=== PATIENT | female | born 2000 | race Caucasian/White ===

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

== ENCOUNTER 2022-10-26 12:40 | Emergency (ER) | payer OTHER ==
[~2022-10-26] VITALS: Ht 152.4 cm; Wt 52.2 kg
[2022-10-26 12:51] VITALS: BP 142/90
[2022-10-26] MEDS ORDERED: CEPH500 PO (13:35)
== END 2022-10-26 14:33 | disposition home or self-care (01) ==
LOC: ER 12:40
DX: S62.651B Nondisplaced fracture of middle phalanx of left index finger, initial encounter for open fracture (principal); W23.0XXA Caught, crushed, jammed, or pinched between moving objects, initial encounter; Z23 Encounter for immunization
CPT/HCPCS: 73140; 90714; A9270

== ENCOUNTER 2023-04-16 10:41 | Emergency (ER) | payer OTHER ==
[~2023-04-16] VITALS: Ht 152.4 cm; Wt 51.3 kg
[~2023-04-16 10:41] MED LIST changes: +CEPH500 PO
[2023-04-16 11:14] VITALS: BP 143/74
[2023-04-16] MEDS ORDERED: Robaxin750 MG PO (11:22)
[2023-04-16] MEDS ORDERED: Mobic7.5 MG PO (11:22)
== END 2023-04-16 11:22 | disposition home or self-care (01) ==
LOC: ER 10:41
DX: M54.9 Dorsalgia, unspecified (principal)
CPT/HCPCS: 99282

== ENCOUNTER → 2023-07-04 | Outpatient (CLI) | payer OTHER ==
[~2023-07-04] MED LIST changes: +Mobic7.5 MG PO; +Robaxin750 MG PO
[2023-07-04 20:05] LABS: BASOPHILS ABSOLUTE AUTO 0.03 K/mm3 (0.00-0.23); BASOPHILS PERCENT AUTO 1 % (0-2); EOSINOPHILS ABSOLUTE AUTO 0.02 K/mm3 (0.00-0.68); EOSINOPHILS PERCENT AUTO 0 % (0-6); Hematocrit 42.4 % (33.0-51.0); Hemoglobin 14.5 g/dL (11.5-16.0); IMMATURE GRAN ABSOLUTE AUTO 0.01 K/mm3 (0.00-0.10); IMMATURE GRAN PERCENT AUTO 0 % (0-1); LYMPHOCYTES ABSOLUTE AUTO 1.78 K/mm3 (0.84-5.20); LYMPHOCYTES PERCENT AUTO 27 % (21-46); MONOCYTES ABSOLUTE AUTO 0.35 K/mm3 (0.16-1.47); MONOCYTES PERCENT AUTO 5 % (4-13); Mean Corpuscular HGB 29.8 pg (26.0-34.0); Mean Corpuscular HGB Conc 34.2 g/dL (31.5-36.5); Mean Corpuscular Volume 87 fL (80-100); Mean Platelet Volume 10.6 fL (9.1-12.4); NEUTROPHILS ABSOLUTE AUTO 4.32 K/mm3 (1.96-9.15); NEUTROPHILS PERCENT AUTO 66 % (41-73); Platelet Count 298 K/mm3 (150-400); RDW Coefficient Variation 11.9 % (11.7-14.2); RDW Standard Deviation 38.1 fL (35.1-46.3); Red Blood Cell Count 4.86 M/mm3 (3.80-5.20); White Blood Cell Count 6.51 K/mm3 (4.00-11.30)
[2023-07-06 15:11] LABS: BILIRUBIN, TOTAL 0.3 mg/dL (0.0-1.2); CALCIUM, SERUM 9.2 mg/dL (8.7-10.2); CREATININE, SERUM 0.54 mg/dL (0.57-1.00); GLOBULIN, TOTAL 2.5 g/dL (1.5-4.5); POTASSIUM, SERUM 3.7 mmol/L (3.5-5.2); PROTEIN, TOTAL, SERUM 7.4 g/dL (6.0-8.5)
== END | disposition home or self-care (01) ==
LOC: LAB SHORT 18:43 → LAB 18:43
PROVIDERS: Family Medicine
DX: R63.4 Abnormal weight loss (principal)
CPT/HCPCS: 80053; 83036; 84443; 85025

== ENCOUNTER 2023-12-18 20:11 | Emergency (ER) | payer SELFPAY ==
[~2023-12-18] VITALS: Ht 152.4 cm; Wt 52.2 kg
[2023-12-18 20:29] VITALS: BP 121/76
== END 2023-12-18 21:57 | disposition home or self-care (01) ==
LOC: ER 20:11
DX: M41.80 Other forms of scoliosis, site unspecified (principal); M79.661 Pain in right lower leg; R26.9 Unspecified abnormalities of gait and mobility; F17.290 Nicotine dependence, other tobacco product, uncomplicated
CPT/HCPCS: 93971; 99283-25

== ENCOUNTER 2024-02-25 00:26 | Emergency (ER) | payer OTHER ==
[~2024-02-25] VITALS: Ht 152.4 cm; Wt 54.4 kg
[2024-02-25 03:35] LABS: BASOPHILS ABSOLUTE AUTO 0.04 K/mm3 (0.00-0.23); BASOPHILS PERCENT AUTO 1 % (0-2); EOSINOPHILS ABSOLUTE AUTO 0.07 K/mm3 (0.00-0.68); EOSINOPHILS PERCENT AUTO 1 % (0-6); Hematocrit 42.4 % (33.0-51.0); Hemoglobin 14.6 g/dL (11.5-16.0); IMMATURE GRAN ABSOLUTE AUTO 0.01 K/mm3 (0.00-0.10); IMMATURE GRAN PERCENT AUTO 0 % (0-1); LYMPHOCYTES ABSOLUTE AUTO 2.42 K/mm3 (0.84-5.20); LYMPHOCYTES PERCENT AUTO 28 % (21-46); MONOCYTES ABSOLUTE AUTO 0.49 K/mm3 (0.16-1.47); MONOCYTES PERCENT AUTO 6 % (4-13); Mean Corpuscular HGB 30.2 pg (26.0-34.0); Mean Corpuscular HGB Conc 34.4 g/dL (31.5-36.5); Mean Corpuscular Volume 88 fL (80-100); Mean Platelet Volume 9.8 fL (9.1-12.4); NEUTROPHILS ABSOLUTE AUTO 5.69 K/mm3 (1.96-9.15); NEUTROPHILS PERCENT AUTO 65 % (41-73); Platelet Count 292 K/mm3 (150-400); RDW Standard Deviation 38.5 fL (35.1-46.3); Red Blood Cell Count 4.84 M/mm3 (3.80-5.20); White Blood Cell Count 8.72 K/mm3 (4.00-11.30)
[2024-02-25] MEDS ORDERED: Ketorolac Tromethamine 30mg Vial IV ONE (03:50)
[2024-02-25] MEDS ORDERED: Mag Hydrox/AL Hydrox/Simeth 30 ML UDC PO ONE (03:50)
[2024-02-25] MEDS ORDERED: NS 1,000 ML IV SCH (03:50)
[2024-02-25] MEDS ORDERED: Ondansetron HCl 2 MG / ML 2ML Vial IV ONE (03:50)
[2024-02-25 03:58] LABS: Albumin, Blood 4.4 g/dL (3.4-5.0); Albumin/Globulin Ratio 1.2 (0.8-1.8); Bilirubin, Total 0.4 mg/dL (0.1-1.0); Bun/Creatinine Ratio 14.3 (12.0-20.0); Calcium, Blood 9.3 mg/dL (8.5-10.1); Creatinine, Blood 0.56 mg/dL (0.40-1.00); Globulin, Blood 3.8 g/dL (2.2-4.0); Potassium, Blood 4.1 mmol/L (3.5-5.5); Total Protein, Blood 8.2 g/dL (6.4-8.2)
[2024-02-25 04:33] LABS: Source, Urine Clean Catch
[2024-02-25 04:39] LABS: Bilirubin, Urine Neg (Neg); Blood, Urine Neg (Neg); Glucose Qualitative, Urine Neg (Neg); Ketones, Urine Neg (Neg); Leukocyte Esterase, Urine 2+ (Neg); Nitrite, Urine Neg (Neg); Protein, Urine Neg (Neg); Urobilinogen, Urine NORM (Normal)
[2024-02-25 04:53] LABS: Appearance, Urine Hazy (Clear); Color, Urine Pale Yellow (P-Yellow)
[2024-02-25 04:54] LABS: Bacteria Few /hpf; Red Blood Cells, Urine Not Seen /hpf (0-2); Squamous Epithelial Cells Few /hpf (Few)
[2024-02-25 06:15] VITALS: BP 137/88
[2024-02-25] MEDS ORDERED: CEPH500 PO (06:26)
== END 2024-02-25 06:35 | disposition home or self-care (01) ==
LOC: ER 00:26
PROVIDERS: Student in an Organized Health Care Education/Training Program
DX: O23.41 Unspecified infection of urinary tract in pregnancy, first trimester (principal)
CPT/HCPCS: 80053; 81001; 83690; 84702; 84703; 85025; 87086; 96361; 96374; 96375; 99284-25; A9270; J1885; J2405; J7030

== ENCOUNTER 2024-03-04 05:29 | Emergency (ER) | payer OTHER ==
[~2024-03-04] VITALS: Ht 152.4 cm; Wt 54.0 kg
[2024-03-04 06:24] LABS: BASOPHILS ABSOLUTE AUTO 0.02 K/mm3 (0.00-0.23); BASOPHILS PERCENT AUTO 0 % (0-2); EOSINOPHILS ABSOLUTE AUTO 0.05 K/mm3 (0.00-0.68); EOSINOPHILS PERCENT AUTO 1 % (0-6); Hematocrit 39.4 % (33.0-51.0); Hemoglobin 13.8 g/dL (11.5-16.0); IMMATURE GRAN ABSOLUTE AUTO 0.01 K/mm3 (0.00-0.10); IMMATURE GRAN PERCENT AUTO 0 % (0-1); LYMPHOCYTES ABSOLUTE AUTO 1.37 K/mm3 (0.84-5.20); LYMPHOCYTES PERCENT AUTO 18 % (21-46); MONOCYTES ABSOLUTE AUTO 0.38 K/mm3 (0.16-1.47); MONOCYTES PERCENT AUTO 5 % (4-13); Mean Corpuscular HGB 30.4 pg (26.0-34.0); Mean Corpuscular Volume 87 fL (80-100); Mean Platelet Volume 9.9 fL (9.1-12.4); NEUTROPHILS ABSOLUTE AUTO 5.97 K/mm3 (1.96-9.15); NEUTROPHILS PERCENT AUTO 77 % (41-73); Platelet Count 239 K/mm3 (150-400); RDW Coefficient Variation 12.1 % (11.7-14.2); RDW Standard Deviation 39.1 fL (35.1-46.3); Red Blood Cell Count 4.54 M/mm3 (3.80-5.20)
[2024-03-04] MEDS ORDERED: Mag Hydrox/AL Hydrox/Simeth 30 ML UDC PO ONE (06:35)
[2024-03-04] MEDS ORDERED: Famotidine 10 MG/ML 2ML Vial IV ONE (06:35)
[2024-03-04] MEDS ORDERED: Metoclopramide HCl 5MG / ML 2ML Vial IV ONE (06:35)
[2024-03-04 07:07] LABS: Albumin, Blood 4.1 g/dL (3.4-5.0); Albumin/Globulin Ratio 1.3 (0.8-1.8); Bilirubin, Direct 0.2 mg/dL (0.0-0.3); Bilirubin, Total 0.5 mg/dL (0.1-1.0); Bun/Creatinine Ratio 7.8 (12.0-20.0); Calcium, Blood 9.1 mg/dL (8.5-10.1); Creatinine, Blood 0.51 mg/dL (0.40-1.00); Globulin, Blood 3.1 g/dL (2.2-4.0); Potassium, Blood 3.6 mmol/L (3.5-5.5); Total Protein, Blood 7.2 g/dL (6.4-8.2)
[2024-03-04] MEDS ORDERED: METO10 PO (08:28)
[2024-03-04] MEDS ORDERED: VITAMIN B-625 MG PO (08:28)
[2024-03-04] MEDS ORDERED: FAMO20 PO (08:28)
[2024-03-04 08:36] VITALS: BP 131/77
== END 2024-03-04 08:40 | disposition home or self-care (01) ==
LOC: ER 05:29
PROVIDERS: Student in an Organized Health Care Education/Training Program
DX: O26.891 Other specified pregnancy related conditions, first trimester (principal); R10.13 Epigastric pain; O21.9 Vomiting of pregnancy, unspecified; Z3A.01 Less than 8 weeks gestation of pregnancy
CPT/HCPCS: 76705; 80053; 82248; 83690; 84702; 85025; 96374; 96375; 99284-25; A9270; J2765

== ENCOUNTER → 2024-04-11 | Outpatient (CLI) | payer OTHER ==
[~2024-04-11] MED LIST changes: +FAMO20 PO; +METO10 PO; +VITAMIN B-625 MG PO
[2024-04-15 13:03] LABS: APTIMA MEDIA TYPE Urine; C. TRACHOMATIS BY TMA Negative (Negative); N. GONORRHOEAE BY TMA Negative (Negative); SPECIMEN SOURCE Urine
== END | disposition home or self-care (01) ==
LOC: LAB SHORT 15:53 → LAB 15:53
PROVIDERS: Registered Nurse Community Health
DX: Z34.91 Encounter for supervision of normal pregnancy, unspecified, first trimester (principal)
CPT/HCPCS: 84443; 87491; 87591

== ENCOUNTER → 2024-07-07 | Outpatient (CLI) | payer OTHER | END | disposition home or self-care (01) | LOC: LAB SHORT 15:47 → LAB 15:47 | DX: R82.998 Other abnormal findings in urine (principal) | CPT/HCPCS: 87086 ==

== ENCOUNTER → 2024-08-07 | Outpatient (CLI) | payer OTHER ==
[2024-08-07 14:58] LABS: Hematocrit 35.8 % (33.0-51.0); Hemoglobin 12.5 g/dL (11.5-16.0)
== END ==
LOC: LAB 13:11 → LAB SHORT 13:11
PROVIDERS: Registered Nurse Community Health
DX: Z34.93 Encounter for supervision of normal pregnancy, unspecified, third trimester (principal)
CPT/HCPCS: 82950; 85014; 85018

== ENCOUNTER → 2024-09-18 | Outpatient (CLI) | payer OTHER ==
[2024-09-18 20:24] LABS: Protein, Urine Quantitative 9.7 mg/dL (0.0-11.9)
== END ==
LOC: LAB SHORT 11:30 → LAB 11:30
PROVIDERS: Registered Nurse Community Health
DX: O13.3 Gestational [pregnancy-induced] hypertension without significant proteinuria, third trimester (principal)
CPT/HCPCS: 81050; 84156

== ENCOUNTER → 2024-09-24 | Outpatient (CLI) | payer OTHER | LOC: LAB 19:11 → LAB SHORT 19:11 | DX: Z34.03 Encounter for supervision of normal first pregnancy, third trimester (principal) | CPT/HCPCS: 87081; 87150 ==

== ENCOUNTER 2024-10-03 16:55 | Inpatient (IN) | payer OTHER ==
[2024-10-03] VITALS (23 sets, daily range): BP systolic 132–185; BP diastolic 75–109
[~2024-10-03] VITALS: Ht 152.4 cm; Wt 66.8 kg
[~2024-10-03 16:55] MED LIST changes: +Misoprostol 200 MCG Tab PO ONE
[2024-10-03] MEDS ORDERED: Oxytocin 10 Unit / ML Vial IM PRN (17:25)
[2024-10-03] MEDS ORDERED: Carboprost Tromethamine 250 MCG/ML 1ML Amp IM PRN (17:25)
[2024-10-03] MEDS ORDERED: LABE100 PO (17:25)
[2024-10-03] MEDS ORDERED: Misoprostol 200 MCG Tab PR PRN (17:25)
[2024-10-03] MEDS ORDERED: ePHEDrine Sulfate 50 MG/ML 1ML Injection XX PRN (17:25)
[2024-10-03] MEDS ORDERED: Tranexamic Acid 100 ML IV SCH (17:25)
[2024-10-03] MEDS ORDERED: Acetaminophen 500 MG Tab PO PRN (17:25)
[2024-10-03] MEDS ORDERED: FentaNYL 2mcg/ml-Bup 0.1% Epd 250 ML EPI PRN (17:25)
[2024-10-03] MEDS ORDERED: Lactated Ringer's 1,000 ML IV SCH ×3 (17:25→20:20)
[2024-10-03] MEDS ORDERED: Misoprostol 200 MCG Tab BC PRN (17:25)
[2024-10-03] MEDS ORDERED: Methylergonovine Maleate 0.2MG / ML 1ML Amp IM PRN (17:25)
[2024-10-03] MEDS ORDERED: Ondansetron HCl 2 MG / ML 2ML Vial IV PRN (17:25)
[2024-10-03] MEDS ORDERED: OXYTOCIN/RINGER'S LACTATE 500 ML IV PRN (17:25)
[2024-10-03] MEDS ORDERED: Lactated Ringer's 1,000 ML IV PRN (17:25)
[2024-10-03] MEDS ORDERED: Calcium Carbonate 500 MG Tab Chew PO SCH (17:30)
[2024-10-03 18:01] LABS: BASOPHILS ABSOLUTE AUTO 0.01 K/mm3 (0.00-0.23); BASOPHILS PERCENT AUTO 0 % (0-2); EOSINOPHILS ABSOLUTE AUTO 0.02 K/mm3 (0.00-0.68); EOSINOPHILS PERCENT AUTO 0 % (0-6); Hematocrit 30.2 % (33.0-51.0); Hemoglobin 10.3 g/dL (11.5-16.0); IMMATURE GRAN ABSOLUTE AUTO 0.05 K/mm3 (0.00-0.10); IMMATURE GRAN PERCENT AUTO 1 % (0-1); LYMPHOCYTES ABSOLUTE AUTO 1.37 K/mm3 (0.84-5.20); LYMPHOCYTES PERCENT AUTO 16 % (21-46); MONOCYTES ABSOLUTE AUTO 0.62 K/mm3 (0.16-1.47); MONOCYTES PERCENT AUTO 7 % (4-13); Mean Corpuscular HGB 30.1 pg (26.0-34.0); Mean Corpuscular HGB Conc 34.1 g/dL (31.5-36.5); Mean Corpuscular Volume 88 fL (80-100); Mean Platelet Volume 12.9 fL (9.1-12.4); NEUTROPHILS ABSOLUTE AUTO 6.58 K/mm3 (1.96-9.15); NEUTROPHILS PERCENT AUTO 76 % (41-73); Platelet Count 111 K/mm3 (150-400); RDW Coefficient Variation 12.4 % (11.7-14.2); Red Blood Cell Count 3.42 M/mm3 (3.80-5.20); White Blood Cell Count 8.65 K/mm3 (4.00-11.30)
[2024-10-03 18:26] LABS: Albumin, Blood 2.7 g/dL (3.4-5.0); Albumin/Globulin Ratio 0.8 (0.8-1.8); Bilirubin, Total 0.7 mg/dL (0.1-1.0); Calcium, Blood 8.5 mg/dL (8.5-10.1); Creatinine, Blood 0.46 mg/dL (0.40-1.00); Globulin, Blood 3.3 g/dL (2.2-4.0); Potassium, Blood 4.1 mmol/L (3.5-5.5)
[2024-10-03] MEDS ORDERED: Labetalol HCL 100 MG TAB PO ONE (19:05)
[2024-10-03] MEDS ORDERED: Misoprostol 25 MCG Tab VAG SCH (20:00)
[2024-10-03] MEDS ORDERED: Labetalol HCL 5 MG/ML 4ML Injection (Single Dose) ONE ×2 (20:16→20:47)
--- NOTE | 2024-10-03 20:17 | NUR ---
Suda WU REGARDING PATIENT'S BP'S 182/100 AND 175/109. ORDER RECEIVED TO START IV LABETALOL PROTOCOL AND MAGNESIUM SULFATE. DISCUSSED PLAN WITH PATIENT AND QUESTIONS ANSWERED.
[2024-10-03] MEDS ORDERED: Labetalol HCL 5 MG/ML 4ML Injection (Single Dose) IV ONE (20:20)
[2024-10-03] MEDS ORDERED: Magnesium Sulfate 500 ML IV SCH (20:20)
[2024-10-03] MEDS ORDERED: Calcium Gluconate 0.465 mEq/ml 10 ml Vial IV PRN (20:20)
[2024-10-03] MEDS ORDERED: Labetalol HCL 5 MG/ML 4ML Injection (Single Dose) IV PRN ×3 (20:20→22:20)
[2024-10-03] MEDS ORDERED: Magnesium Sul 4 GM/Water100 ML 100 ML IV ONE ×2 (20:20→20:26)
[2024-10-03] MEDS ORDERED: Magnesium Sulfate 500 ML IV ONE (20:26)
--- NOTE | 2024-10-03 20:47 | NUR ---
UPDATE GIVEN TO Marcella WU REGARDING PATIENTS BP'S AND PROCEEDING WITH SECOND DOSE OF LABETALOL
[2024-10-03 21:11] LABS: BASOPHILS ABSOLUTE AUTO 0.03 K/mm3 (0.00-0.23); BASOPHILS PERCENT AUTO 0 % (0-2); EOSINOPHILS ABSOLUTE AUTO 0.04 K/mm3 (0.00-0.68); EOSINOPHILS PERCENT AUTO 0 % (0-6); Hematocrit 28.8 % (33.0-51.0); Hemoglobin 9.9 g/dL (11.5-16.0); IMMATURE GRAN ABSOLUTE AUTO 0.05 K/mm3 (0.00-0.10); IMMATURE GRAN PERCENT AUTO 1 % (0-1); LYMPHOCYTES ABSOLUTE AUTO 1.54 K/mm3 (0.84-5.20); LYMPHOCYTES PERCENT AUTO 16 % (21-46); MONOCYTES ABSOLUTE AUTO 0.47 K/mm3 (0.16-1.47); MONOCYTES PERCENT AUTO 5 % (4-13); Mean Corpuscular HGB 30.5 pg (26.0-34.0); Mean Corpuscular HGB Conc 34.4 g/dL (31.5-36.5); Mean Corpuscular Volume 89 fL (80-100); Mean Platelet Volume 12.3 fL (9.1-12.4); NEUTROPHILS ABSOLUTE AUTO 7.49 K/mm3 (1.96-9.15); NEUTROPHILS PERCENT AUTO 78 % (41-73); Platelet Count 113 K/mm3 (150-400); RDW Coefficient Variation 12.4 % (11.7-14.2); RDW Standard Deviation 40.4 fL (35.1-46.3); Red Blood Cell Count 3.25 M/mm3 (3.80-5.20); White Blood Cell Count 9.62 K/mm3 (4.00-11.30)
[2024-10-03 21:24] LABS: International Normalized Ratio 0.91; Prothrombin Time Results 9.8 Sec (9.7-11.5)
[2024-10-03 21:59] LABS: Albumin, Blood 2.5 g/dL (3.4-5.0); Albumin/Globulin Ratio 0.8 (0.8-1.8); Bilirubin, Total 0.4 mg/dL (0.1-1.0); Calcium, Blood 8.4 mg/dL (8.5-10.1); Creatinine, Blood 0.5 mg/dL (0.40-1.00); Globulin, Blood 3.2 g/dL (2.2-4.0); Potassium, Blood 3.5 mmol/L (3.5-5.5); Total Protein, Blood 5.7 g/dL (6.4-8.2)
[2024-10-03] MEDS ORDERED: NIFEdipine 10 MG Cap PO ONE (22:05)
[2024-10-03] MEDS ORDERED: HydrALAZINE HCl 20 MG / ML 1ML Vial IV PRN (22:20)
[2024-10-03] MEDS ORDERED: OXYTOCIN/RINGER'S LACTATE 500 ML IV SCH (23:00)
[2024-10-03] MEDS ORDERED: HydrALAZINE HCl 20 MG / ML 1ML Vial IV SCH ×2 (23:05)
[2024-10-03] MEDS ORDERED: HydrALAZINE HCl 20 MG / ML 1ML Vial IV ONE (23:05)
[2024-10-03 23:45] LABS: Creatinine, Urine Random 18.9 mg/dL (27.00-270.00); Protein, Urine Random 44.2 mg/dL (0.0-11.9); Protein/Creat Ratio, Ur Random 2.3
[2024-10-04] VITALS (39 sets, daily range): BP systolic 103–167; BP diastolic 55–100
--- NOTE | 2024-10-04 06:45 | NUR ---
Marcella WU CNM PHONED IN FOR UPDATE. DISCUSSED BP'S THROUGHOUT THE NIGHT, INCLUDING 2 SEVERE RANGE BP'S (AT 2300 AND 0203) FOLLOWED BY BY WNL. REPORTED PATIENT'S HEADACHE, RECEIVED TYLENOL, AND IS SLIGHTLY IMPROVED NOW. ALSO DISCUSSED FHR TRACING AND CHANGE IN BASELINE TO 110. REPORTED CURRENT OXYTOCIN LEVEL AT 16 WITH PATIENT ONLY REPORTING TO MILDLY FEEL CONTRACTIONS - DESCRIBES IT PRESSURE, NOT PAIN. CNM WILL BE IN TO SEE PATIENT LATER THIS MORNING.
[2024-10-04] MEDS ORDERED: Labetalol HCL 100 MG TAB PO SCH ×2 (09:00)
[2024-10-04] MEDS ORDERED: FentaNYL Citrate 50 MCG/ML 2 ML Injection IV PRN (11:30)
[2024-10-04] MEDS ORDERED: DiphenhydrAMINE HCl 50 MG/ML 1ML Vial IV PRN (20:20)
[2024-10-04] MEDS ORDERED: Naloxone HCl 0.4MG / ML 1ML Vial IV PRN (20:20)
[2024-10-04] MEDS ORDERED: Metoclopramide HCl 5MG / ML 2ML Vial IV PRN (20:20)
[2024-10-04] MEDS ORDERED: Ondansetron HCl 2 MG / ML 2ML Vial IV PRN (20:20)
[2024-10-04] MEDS ORDERED: ePHEDrine Sulfate 50 MG/ML 1ML Injection IV PRN (20:20)
[2024-10-04] MEDS ORDERED: FentaNYL Citrate 50 MCG/ML 2 ML Injection ONE (22:11)
[2024-10-05] VITALS (45 sets, daily range): BP systolic 98–213; BP diastolic 52–119
[2024-10-05 10:53] LABS: BASOPHILS ABSOLUTE AUTO 0.03 K/mm3 (0.00-0.23); BASOPHILS PERCENT AUTO 0 % (0-2); EOSINOPHILS ABSOLUTE AUTO 0.01 K/mm3 (0.00-0.68); EOSINOPHILS PERCENT AUTO 0 % (0-6); Hematocrit 32.3 % (33.0-51.0); Hemoglobin 10.8 g/dL (11.5-16.0); IMMATURE GRAN ABSOLUTE AUTO 0.22 K/mm3 (0.00-0.10); IMMATURE GRAN PERCENT AUTO 1 % (0-1); LYMPHOCYTES ABSOLUTE AUTO 1.21 K/mm3 (0.84-5.20); LYMPHOCYTES PERCENT AUTO 6 % (21-46); MONOCYTES ABSOLUTE AUTO 1.38 K/mm3 (0.16-1.47); MONOCYTES PERCENT AUTO 7 % (4-13); Mean Corpuscular HGB Conc 33.4 g/dL (31.5-36.5); Mean Corpuscular Volume 90 fL (80-100); Mean Platelet Volume 12.8 fL (9.1-12.4); NEUTROPHILS ABSOLUTE AUTO 16.92 K/mm3 (1.96-9.15); NEUTROPHILS PERCENT AUTO 86 % (41-73); Platelet Count 140 K/mm3 (150-400); RDW Coefficient Variation 12.5 % (11.7-14.2); RDW Standard Deviation 41.1 fL (35.1-46.3); White Blood Cell Count 19.77 K/mm3 (4.00-11.30)
[2024-10-05 11:31] LABS: Albumin, Blood 2.6 g/dL (3.4-5.0); Albumin/Globulin Ratio 0.8 (0.8-1.8); Bilirubin, Total 0.6 mg/dL (0.1-1.0); Bun/Creatinine Ratio 8.2 (12.0-20.0); Calcium, Blood 6.9 mg/dL (8.5-10.1); Creatinine, Blood 0.61 mg/dL (0.40-1.00); Globulin, Blood 3.4 g/dL (2.2-4.0); Magnesium, Blood 7.5 mg/dL (1.6-2.4); Potassium, Blood 3.6 mmol/L (3.5-5.5)
[2024-10-05 17:14] LABS: PCO2 Cord - Arterial 53.5 mmHg (40-50); PO2 Cord - Arterial 19.9 mmHg (16-20); pH Cord - Arterial 7.24 (7.28-7.35)
[2024-10-05 17:16] LABS: PCO2 Cord - Venous 37.4 mmHg (40-50); PO2 Cord - Venous 30.4 mmHg (28-32); pH Umbilical Cord - Venous 7.35 (7.26-7.35)
[2024-10-05] MEDS ORDERED: Ketorolac Tromethamine 30mg Vial IV ONE (17:20)
[2024-10-05] MEDS ORDERED: Witch Hazel/Glycerin PADS TOP PRN (17:40)
[2024-10-05] MEDS ORDERED: OXYTOCIN/RINGER'S LACTATE 500 ML IV SCH (17:40)
[2024-10-05] MEDS ORDERED: Diphth,Pertuss(Acell),Tet Vac 0.5 ML VIAL IM ONE (17:40)
[2024-10-05] MEDS ORDERED: Rho(D) Immune Globulin 300 MCG / SYR IM ONE (17:40)
[2024-10-05] MEDS ORDERED: Docusate Sodium 100 MG Cap PO PRN (17:40)
[2024-10-05] MEDS ORDERED: Benzocaine Topical Anesthetic Spray 60GM TOP PRN (17:40)
[2024-10-05] MEDS ORDERED: Acetaminophen/Codeine 300-30 mg PO PRN (17:40)
[2024-10-05] MEDS ORDERED: Oxytocin 10 Unit / ML Vial IM ONE (17:45)
[2024-10-05] MEDS ORDERED: Ibuprofen 400 MG Tab PO PRN (17:45)
[2024-10-05] MEDS ORDERED: Lanolin Cream TOP PRN (17:45)
[2024-10-05] MEDS ORDERED: Measles/Mumps/Rubella Vaccine 0.5 ML Vial SC ONE (17:45)
[2024-10-05] MEDS ORDERED: Acetaminophen 325 MG TABLET PO PRN (17:45)
[2024-10-05] MEDS ORDERED: Ketorolac Tromethamine 30mg Vial IV PRN (17:45)
[2024-10-05] MEDS ORDERED: OxyCODONE 5 mg/Acetamin 325 mg TABLET PO PRN (17:45)
[2024-10-05] MEDS ORDERED: Lactated Ringer's 1,000 ML IV SCH (17:50)
--- NOTE | 2024-10-05 17:54 | NUR ---
Marcella ROQUE CNM TO THE BEDSIDE, NOTIFIED OF BP OF 213/97. INSTRUCTED TO ADMINISTER HYDRALAZINE IV PER ORDERS.
[2024-10-05 20:08] LABS: Source, Urine Foley catheter
[2024-10-05 20:12] LABS: Bilirubin, Urine Neg (Neg); Blood, Urine 5+ (Neg); Glucose Qualitative, Urine Neg (Neg); Ketones, Urine Neg (Neg); Leukocyte Esterase, Urine 1+ (Neg); Nitrite, Urine Neg (Neg); Protein, Urine 3+ (Neg); Specific Gravity, Urine 1.025 (1.003-1.022); Urobilinogen, Urine NORM (Normal)
[2024-10-05 20:14] LABS: Appearance, Urine Hazy (Clear); Color, Urine Brown (P-Yellow)
[2024-10-05 20:18] LABS: Amorphous Light (0-Heavy); Bacteria Few /hpf; Red Blood Cells, Urine TNTC /hpf (0-2); Squamous Epithelial Cells Few /hpf (Few)
--- NOTE | 2024-10-05 20:55 | NUR ---
2054- PATIENT CALLED OUT NOT FEELING WELL. REPORTED LIGHT HEADED, MUFFLED HEARING, HOT AND DIAPHORETIC. 2058- BP 98/52. MAGNESIUM INFUSION PAUSED. 2102- O2 SAT 100%. LUNGS CLEAR, ALERT AND ORIENTED. 2104- FUNDUS FIRM. PATIENT GIVEN BEDPAN - UNABLE TO VOID. PATIENT VERY SWOLLEN. MILLER CATHETER PLACED. SMALL AMOUNT, APPROX 60 ML, DARK URINE NOTED. 2129- PHONE CALL TO Marcella WU CNM. MESSAGE LEFT. 2139- Marcella WU CNM RETURNED PHONE CALL. REPORTED INCREASED BLEEDING (QBL 311 IN APPROX 30 MIN), PATIENT FEELING DIZZY, HOT, DIAPHORETIC, MUFFLED HEARING, PALE, HYPOTENSIVE, DECREASED URINE OUTPUT. Marcella WU ON HER WAY IN TO ASSESS PATIENT.
--- NOTE | 2024-10-05 22:07 | NUR ---
Marcella WU CNM AT BEDSIDE ASSESSINT PATIENT. REPORTS OF COMPLAINTS AND ASSESSMENT NOTED
[2024-10-05 22:23] LABS: Hemoglobin 7.6 g/dL (11.5-16.0); Mean Corpuscular HGB 30.6 pg (26.0-34.0); Mean Corpuscular HGB Conc 34.5 g/dL (31.5-36.5); Mean Corpuscular Volume 89 fL (80-100); NRBC ABSOLUTE 0.02 K/mm3 (0.00-0.02); NRBC Auto 0.1 /100 WBC (0.0-0.2); Platelet Count 176 K/mm3 (150-400); RDW Coefficient Variation 12.7 % (11.7-14.2); RDW Standard Deviation 41.1 fL (35.1-46.3); Red Blood Cell Count 2.48 M/mm3 (3.80-5.20); White Blood Cell Count 28.29 K/mm3 (4.00-11.30)
[2024-10-05] MEDS ORDERED: Tranexamic Acid 100 ML IV ONE (22:45)
[2024-10-05] MEDS ORDERED: NS 1,000 ML IV ONE (22:50)
[2024-10-05 22:54] LABS: Magnesium, Blood 6.6 mg/dL (1.6-2.4)
[2024-10-05 22:55] LABS: Albumin, Blood 1.8 g/dL (3.4-5.0); Albumin/Globulin Ratio 0.7 (0.8-1.8); Bilirubin, Total 0.4 mg/dL (0.1-1.0); Bun/Creatinine Ratio 9.2 (12.0-20.0); Calcium, Blood 6.6 mg/dL (8.5-10.1); Creatinine, Blood 0.87 mg/dL (0.40-1.00); Globulin, Blood 2.5 g/dL (2.2-4.0); Potassium, Blood 3.8 mmol/L (3.5-5.5); Total Protein, Blood 4.3 g/dL (6.4-8.2)
[2024-10-05 23:03] LABS: BAND PERCENT MAN 13 % (0-8); BASOPHILS PERCENT MAN 0 % (0-2); EOSINOPHILS PERCENT MAN 0 % (0-6); LYMPHOCYTES ABSOLUTE MAN 0.84 K/mm3 (0.84-5.20); LYMPHOCYTES PERCENT MAN 3 % (21-46); MONOCYTES ABSOLUTE MAN 0.56 K/mm3 (0.16-1.47); MONOCYTES PERCENT MAN 2 % (4-13); NEUTROPHILS ABSOLUTE MAN 26.87 K/mm3 (1.96-9.15); SEG NEUTROPHILS PERCENT MAN 82 % (41-73); TOTAL CELLS COUNTED 100
[2024-10-05] MEDS ORDERED: FentaNYL Citrate 50 MCG/ML 2 ML Injection IV ONE (23:05)
[2024-10-06] VITALS (29 sets, daily range): BP systolic 114–152; BP diastolic 59–99
[2024-10-06] MEDS ORDERED: CeFAZolin Sodium 2,000 MG in NS 100 ML IV SCH
--- NOTE | 2024-10-06 01:24 | NUR ---
2300 - DR. STEIN AT BEDSIDE. US PERFORMED. DISCUSSED WITH PATIENT TO DO A MANUAL EXAM TO REMOVE BLOOD CLOTS. PATIENT AGREES. 2330- EXAM DONE. CLOTS REMAIN. PLAN TO PROCEED WITH FABIENNE PLACEMENT. 0015- FABIENNE PLACED BY DR. STEIN. FABIENNE FILLED WITH 120 ML. MINIMAL AMOUNT OF BLOOD IN FABIENNE TUBING. ORDER RECEIVED TO TURN FABIENNE SUCTION OFF AT 1 1/2 HOURS AND REMOVE AT 2 HOURS IF BLEEDING WNL.
--- NOTE | 2024-10-06 01:45 | NUR ---
0145 - FABIENNE SUCTION TURNED OFF. MINIMAL AMOUNT OF BLOOD IN SUCTION TUBING - APPROXIMATELY 1/4 OF SUCTION TUBING FILLED WITH BLOOD. NO BLOOD OUTPUT UNDER PATIENT 0200 - NO BLOOD OUTPUT UNDER PATIENT. 0215 - NO BLOOD OUTPUT UNDER PATIENT. FUNDUS FEELS FIRM ON PALPATION. FABIENNE REMOVED PER ORDER. AFTER REMOVAL, FUNDUS FIRM WITH SCANT BLEEDING.
[2024-10-06] MEDS ORDERED: NS 1,000 ML IV SCH (03:00)
--- NOTE | 2024-10-06 04:35 | NUR ---
T.R. TO DR. STEIN. REPORTED DECREASED UO (<30 ML/HR). MORNING LABS WILL BE DRAWN SOON. PLAN TO WAIT FOR LAB RESULTS PRIOR TO RESTARTING MAGNESIUM. ALSO WILL RESUME LR @ 100 ML/HR PER DR. STEIN'S ORDERS.
[2024-10-06] MEDS ORDERED: Lactated Ringer's 1,000 ML IV SCH (05:00)
[2024-10-06 05:50] LABS: BASOPHILS ABSOLUTE AUTO 0.03 K/mm3 (0.00-0.23); BASOPHILS PERCENT AUTO 0 % (0-2); EOSINOPHILS ABSOLUTE AUTO 0.02 K/mm3 (0.00-0.68); EOSINOPHILS PERCENT AUTO 0 % (0-6); Hematocrit 24.6 % (33.0-51.0); Hemoglobin 8.6 g/dL (11.5-16.0); IMMATURE GRAN ABSOLUTE AUTO 0.09 K/mm3 (0.00-0.10); IMMATURE GRAN PERCENT AUTO 0 % (0-1); LYMPHOCYTES ABSOLUTE AUTO 1.82 K/mm3 (0.84-5.20); LYMPHOCYTES PERCENT AUTO 9 % (21-46); MONOCYTES PERCENT AUTO 9 % (4-13); Mean Corpuscular HGB 30.3 pg (26.0-34.0); Mean Corpuscular Volume 87 fL (80-100); Mean Platelet Volume 12.8 fL (9.1-12.4); NEUTROPHILS ABSOLUTE AUTO 17.59 K/mm3 (1.96-9.15); NEUTROPHILS PERCENT AUTO 82 % (41-73); Platelet Count 117 K/mm3 (150-400); RDW Coefficient Variation 13.2 % (11.7-14.2); RDW Standard Deviation 41.4 fL (35.1-46.3); Red Blood Cell Count 2.84 M/mm3 (3.80-5.20); White Blood Cell Count 21.45 K/mm3 (4.00-11.30)
[2024-10-06 06:09] LABS: Albumin, Blood 1.9 g/dL (3.4-5.0); Albumin/Globulin Ratio 0.7 (0.8-1.8); Bilirubin, Total 0.5 mg/dL (0.1-1.0); Bun/Creatinine Ratio 10.2 (12.0-20.0); Calcium, Blood 6.7 mg/dL (8.5-10.1); Creatinine, Blood 1.08 mg/dL (0.40-1.00); Globulin, Blood 2.6 g/dL (2.2-4.0); Total Protein, Blood 4.5 g/dL (6.4-8.2)
[2024-10-06 06:28] LABS: International Normalized Ratio 0.93
--- NOTE | 2024-10-06 06:44 | NUR ---
Suad TO DR. STEIN. REPORTED PATIENTS LAB RESULTS, HOURLY URINE OUTPUT, BP'S THROUGHOUT THE NIGHT, CURRENT QBL, ETC. NEW ORDERS RECEIVED TO INCREASE LR TO 125 ML/HOUR, RESTART MAGNESIUM AT 1 GM/HOUR, REPEAT LABS IN 6 HOURS, AND REPORT UO <30 ML/HR.
[2024-10-06] MEDS ORDERED: Magnesium Sulfate 500 ML IV SCH (06:55)
[2024-10-06] MEDS ORDERED: Prenatal Vit/FE Fumarate/FA 1 Tab PO SCH (09:00)
[2024-10-06 12:26] LABS: BASOPHILS ABSOLUTE AUTO 0.02 K/mm3 (0.00-0.23); BASOPHILS PERCENT AUTO 0 % (0-2); EOSINOPHILS ABSOLUTE AUTO 0.06 K/mm3 (0.00-0.68); EOSINOPHILS PERCENT AUTO 0 % (0-6); Hematocrit 22.3 % (33.0-51.0); Hemoglobin 7.8 g/dL (11.5-16.0); IMMATURE GRAN ABSOLUTE AUTO 0.09 K/mm3 (0.00-0.10); IMMATURE GRAN PERCENT AUTO 1 % (0-1); LYMPHOCYTES ABSOLUTE AUTO 1.96 K/mm3 (0.84-5.20); LYMPHOCYTES PERCENT AUTO 12 % (21-46); MONOCYTES ABSOLUTE AUTO 1.26 K/mm3 (0.16-1.47); MONOCYTES PERCENT AUTO 8 % (4-13); Mean Corpuscular HGB 30.1 pg (26.0-34.0); Mean Corpuscular Volume 86 fL (80-100); Mean Platelet Volume 12.6 fL (9.1-12.4); NEUTROPHILS ABSOLUTE AUTO 13.13 K/mm3 (1.96-9.15); NEUTROPHILS PERCENT AUTO 80 % (41-73); Platelet Count 109 K/mm3 (150-400); RDW Coefficient Variation 13.9 % (11.7-14.2); RDW Standard Deviation 43.5 fL (35.1-46.3); Red Blood Cell Count 2.59 M/mm3 (3.80-5.20); White Blood Cell Count 16.52 K/mm3 (4.00-11.30)
[2024-10-06 12:58] LABS: Calcium, Blood 6.5 mg/dL (8.5-10.1); Magnesium, Blood 5.2 mg/dL (1.6-2.4); Potassium, Blood 3.8 mmol/L (3.5-5.5)
[2024-10-06] MEDS ORDERED: Rho(D) Immune Globulin 300 MCG / SYR IV SCH (14:40)
--- NOTE | 2024-10-06 15:26 | NUR ---
UP TO WHEELCHAIR TO TAKE SHOWER IN ANOTHER ROOM THAT HAS A STAND UP SHOWER WITH A CHAIR. TOLERATING WELL.
[2024-10-06 22:12] LABS: BASOPHILS ABSOLUTE AUTO 0.02 K/mm3 (0.00-0.23); BASOPHILS PERCENT AUTO 0 % (0-2); EOSINOPHILS ABSOLUTE AUTO 0.04 K/mm3 (0.00-0.68); EOSINOPHILS PERCENT AUTO 0 % (0-6); Hematocrit 22.2 % (33.0-51.0); Hemoglobin 7.8 g/dL (11.5-16.0); IMMATURE GRAN ABSOLUTE AUTO 0.12 K/mm3 (0.00-0.10); IMMATURE GRAN PERCENT AUTO 1 % (0-1); LYMPHOCYTES ABSOLUTE AUTO 1.95 K/mm3 (0.84-5.20); LYMPHOCYTES PERCENT AUTO 14 % (21-46); MONOCYTES ABSOLUTE AUTO 0.93 K/mm3 (0.16-1.47); MONOCYTES PERCENT AUTO 7 % (4-13); Mean Corpuscular HGB 30.7 pg (26.0-34.0); Mean Corpuscular HGB Conc 35.1 g/dL (31.5-36.5); Mean Corpuscular Volume 87 fL (80-100); Mean Platelet Volume 12.3 fL (9.1-12.4); NEUTROPHILS ABSOLUTE AUTO 11.23 K/mm3 (1.96-9.15); NEUTROPHILS PERCENT AUTO 79 % (41-73); Platelet Count 131 K/mm3 (150-400); RDW Coefficient Variation 14.4 % (11.7-14.2); RDW Standard Deviation 46.5 fL (35.1-46.3); Red Blood Cell Count 2.54 M/mm3 (3.80-5.20); White Blood Cell Count 14.29 K/mm3 (4.00-11.30)
[2024-10-06 22:34] LABS: Albumin/Globulin Ratio 0.7 (0.8-1.8); Bilirubin, Total 0.3 mg/dL (0.1-1.0); Bun/Creatinine Ratio 16.8 (12.0-20.0); Calcium, Blood 6.5 mg/dL (8.5-10.1); Creatinine, Blood 0.72 mg/dL (0.40-1.00); Globulin, Blood 2.8 g/dL (2.2-4.0); Potassium, Blood 3.6 mmol/L (3.5-5.5); Total Protein, Blood 4.8 g/dL (6.4-8.2)
[2024-10-07] VITALS (12 sets, daily range): BP systolic 118–148; BP diastolic 68–80
--- NOTE | 2024-10-07 01:24 | NUR ---
FOCUS: BLOODWORK D: PIH DRAW @ 2199: HgB: 7.8 (UNCHANGED SINCE OCTOBER 06 @ NOON). PLTS UP TO 131. CREA + EGFR WNL. ALT N, AST ELEVATED @ 42. PT IS LESS PALE ( PER PT + PARTNER). DENIES DIZZINESS, SOB, LIGHTHEADEDNESS. BP ELEVATED (PREECLAMPSIA) WITH NORMAL HR AND SPO2. HEATING EQUIPMENT REPAIRER ALSO NOTED THAT NO RUBELLA STATUS IS AVAILABLE IN PT CHART AND EMR. A: HEATING EQUIPMENT REPAIRER LEFT MESSAGE FOR MONTSERRAT WU OCTOBER 02 @ 1034 TO UPDATE ON RECENT H BLOODWORK AND TO REQUEST RPT LABS + RUBELLA SEROLOGY. MRP PHONED UNIT @ 4029 AND WAS UPDATED ON PT STATUS, RECENT VITALS, ASYMPTOMATIC FOR PIH + ANEMIA. ORDERS REC'D R: PT AWARE OF SAME. REPORTED THAT SHE DOES NOT WANT THE TDAP (NOT SURE WHEN SHE LAST HAD IT DONE) AND IS UNSURE IF SHE WANTS THE MMR VACCINE IF HER RUBELLA TITRE IS BELOW 10 IU/ML P: RPT LABS OCTOBER 07 @ 0700. +/- PRBC? IRON SUCROSE IV?
--- NOTE | 2024-10-07 03:08 | NUR ---
FOCUS: PERINEUM D: PERINEUM STILL QUITE EDEMATOUS. FC INSITU DRAINING PALE YELLOW URINE. A: PERICARE IN BATHROOM DONE. DISC'D USE OF PERIMEDS, ICEPACK, IBUPROFEN (FOR INFLAMMATION). R: PT AGREEABLE TO PERIMEDS + ICEPACK P: CONTINUE WITH Q4H PERIPAD CHANGE, USE OF PERIMEDS, ICEPACKS
[2024-10-07 08:29] LABS: BASOPHILS ABSOLUTE AUTO 0.03 K/mm3 (0.00-0.23); BASOPHILS PERCENT AUTO 0 % (0-2); EOSINOPHILS ABSOLUTE AUTO 0.08 K/mm3 (0.00-0.68); EOSINOPHILS PERCENT AUTO 1 % (0-6); Hematocrit 23.2 % (33.0-51.0); Hemoglobin 7.8 g/dL (11.5-16.0); IMMATURE GRAN ABSOLUTE AUTO 0.12 K/mm3 (0.00-0.10); IMMATURE GRAN PERCENT AUTO 1 % (0-1); LYMPHOCYTES ABSOLUTE AUTO 1.87 K/mm3 (0.84-5.20); LYMPHOCYTES PERCENT AUTO 13 % (21-46); MONOCYTES PERCENT AUTO 6 % (4-13); Mean Corpuscular HGB Conc 33.6 g/dL (31.5-36.5); Mean Corpuscular Volume 89 fL (80-100); Mean Platelet Volume 12.1 fL (9.1-12.4); NEUTROPHILS ABSOLUTE AUTO 11.08 K/mm3 (1.96-9.15); NEUTROPHILS PERCENT AUTO 79 % (41-73); Platelet Count 146 K/mm3 (150-400); RDW Coefficient Variation 14.4 % (11.7-14.2); RDW Standard Deviation 46.9 fL (35.1-46.3); White Blood Cell Count 13.98 K/mm3 (4.00-11.30)
[2024-10-07 08:44] LABS: Albumin, Blood 2.1 g/dL (3.4-5.0); Albumin/Globulin Ratio 0.7 (0.8-1.8); Bilirubin, Total 0.3 mg/dL (0.1-1.0); Bun/Creatinine Ratio 13.4 (12.0-20.0); Calcium, Blood 7.1 mg/dL (8.5-10.1); Creatinine, Blood 0.67 mg/dL (0.40-1.00); Potassium, Blood 3.6 mmol/L (3.5-5.5); Total Protein, Blood 5.1 g/dL (6.4-8.2)
--- NOTE | 2024-10-07 08:49 | NUR ---
PT UP IN ROOM DENIES ANY DIZZINESS OR LIGHT HEADEDNESS . SHAHLA SELF CARE. PUMPING INDEPENDANTLY TO ENCOURAGE MILK SUPPLY. ENCOURAGED NSAIDS TODAY TO ASSIST WITH DECREASED SWELLING. PT USING ICE OCC FOR TREATMENT TO PERINEUM. PT TO TRY TO USE BRP WITHIN A COUPLE HOURS OF MILLER D/C. PT TO NOTIFY RN IF UNABLE TO VOID. HAT IN TOILET TO COLLECT VOID
--- NOTE | 2024-10-07 09:16 | NUR ---
Marcella WU CNM AT BEDSIDE. DISCUSSED PLAN FOR PT TO TAKE IBUPROFEN Q 8 HOURS TO DECREASE SWELLING. PT TO NOTIFY RN IF SHE IS UNABLE TO VOID.
[2024-10-07] MEDS ORDERED: Sod Ferric Gluc Complx/Sucrose 125 MG in NS 100 ML IV ONE (12:35)
[2024-10-08] VITALS (8 sets, daily range): BP systolic 120–171; BP diastolic 67–87
[2024-10-08] MEDS ORDERED: Sod Ferric Gluc Complx/Sucrose 125 MG in NS 100 ML IV SCH (09:00)
== END 2024-10-08 13:35 | disposition home or self-care (01) | DRG 768 ==
LOC: BC 16:55 → OBS 16:55 → BC 17:04
PROVIDERS: Family Medicine; Pediatrics; ADMIT Registered Nurse Community Health
PROC: 10D07Z6 Extraction of Products of Conception, Vacuum, Via Natural or Artificial Opening (ICD-10-PCS; principal; 2024-10-05)
PROC: 0KQM0ZZ Repair Perineum Muscle, Open Approach (ICD-10-PCS; 2024-10-05)
PROC: 10907ZC Drainage of Amniotic Fluid, Therapeutic from Products of Conception, Via Natural or Artificial Opening (ICD-10-PCS; 2024-10-05)
PROC: 3E0R3BZ Introduction of Anesthetic Agent into Spinal Canal, Percutaneous Approach (ICD-10-PCS; 2024-10-05)
PROC: 00HU33Z Insertion of Infusion Device into Spinal Canal, Percutaneous Approach (ICD-10-PCS; 2024-10-05)
PROC: 0W3R7ZZ Control Bleeding in Genitourinary Tract, Via Natural or Artificial Opening (ICD-10-PCS; 2024-10-06)
PROC: 3E0334Z Introduction of Serum, Toxoid and Vaccine into Peripheral Vein, Percutaneous Approach (ICD-10-PCS; 2024-10-06)
DX: O14.94 Unspecified pre-eclampsia, complicating childbirth (principal); Z37.0 Single live birth; Z3A.37 37 weeks gestation of pregnancy; O72.1 Other immediate postpartum hemorrhage; Z79.899 Other long term (current) drug therapy
CPT/HCPCS: 36415; 36430; 51702; 80048; 80053; 81001; 82570; 82803; 82947; 83615; 83735; 84156; 85025; 85384; 85460; 85610; 85730; 86762; 86850; 86870; 86900; 86901; 86922; A9270; J0360; J0690; J1885; J2405; J2590; J2791; J2916; J3010; J3475; J7120; P9016; P9059